=== PATIENT | male | born 1985 | race Two or more races ===

== ENCOUNTER 2019-02-22 10:05 | Emergency (ER) | payer SELFPAY ==
[~2019-02-22] VITALS: Ht 170.2 cm; Wt 62.6 kg
[2019-02-22 09:55] VITALS: BP 125/75
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
[2019-02-22] MEDS ORDERED: ALPRAZOLAM0.25 MG ORAL (10:50)
[2019-02-22 10:55] VITALS: BP 121/72
[2019-02-22 11:04] VITALS: BP 121/72
--- NOTE | 2019-02-22 11:05 | NUR ---
ER DISCHARGE NOTE: Patient is cleared to be discharged per ERMD, pt is aox4, on room air, with stable vital signs. pt was given dc and prescription instructions, pt was able to verbalize understanding, pt id band removed without complications. pt is able to ambulate with steady gait. pt took all belongings.
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
== END 2019-02-22 11:05 | disposition home or self-care (01) ==
LOC: EDBD 10:05 → EMR 10:30
DX: F41.9 Anxiety disorder, unspecified (principal)
CPT/HCPCS: 99283